=== PATIENT | male | born 1975 | race Caucasian/White ===

== ENCOUNTER 2016-09-07 15:01 | Emergency (ER) | payer OTHER ==
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
== END 2016-09-07 15:38 | disposition home or self-care (01) ==
LOC: CFTX 15:01
DX: S92.322A Displaced fracture of second metatarsal bone, left foot, initial encounter for closed fracture (principal); W23.0XXA Caught, crushed, jammed, or pinched between moving objects, initial encounter; Y92.69 Other specified industrial and construction area as the place of occurrence of the external cause; Y99.0 Civilian activity done for income or pay
CPT/HCPCS: 29515; 73630; 99283